=== PATIENT | male | born 1985 | race Caucasian/White ===

== ENCOUNTER 2019-11-20 13:13 | Emergency (ER) | payer OTHER ==
[~2019-11-20] VITALS: Ht 177.8 cm; Wt 84.0 kg
[2019-11-20] MEDS ORDERED: ONDANSETRON 2MG/ML, 2ML ONE (13:54)
[2019-11-20] MEDS ORDERED: HYDROmorphone 1 MG/ML, 1ML INJ ONE ×2 (13:54→15:56)
[2019-11-20] MEDS: HYDROmorphone 1 MG/ML, 1ML INJ IVPush PRN ×2 (13:57→14:38)
[2019-11-20] MEDS ORDERED: ONDANSETRON 2MG/ML, 2ML IVPush ONE (14:00)
[2019-11-20] MEDS ORDERED: SODIUM CHLORIDE FLUSH 10ML SYR IVF ONE (14:00)
[2019-11-20] MEDS ORDERED: FEXO60TA24 PO (14:02)
--- NOTE | 2019-11-20 14:08 | NUR ---
PT MEDICATED PER NOV. WILL CONTINUE TO MONITOR. PT ON CONTINUOUS SPO2 MONITOR AND CARDIAC MONITORS. CALL LIGHT IN LAP.
[2019-11-20 14:57] LABS: ALBUMIN 3.9 g/dL (3.4-5.0); CALCIUM 9.3 mg/dL (8.5-10.1); CREATININE 1.19 mg/dL (0.7-1.3)
[2019-11-20 15:02] LABS: ANION GAP 7 mmol/L (5-15); CHLORIDE 110 mmol/L (98-107)
[2019-11-20 15:07] LABS: BASOPHILS # (AUTO) 0.03 x10^3/uL (0-0.1); BASOPHILS % (AUTO) 0 % (0-1); EOSINOPHILS # (AUTO) 0.14 x10^3/uL (0-0.4); EOSINOPHILS % (AUTO) 2 % (1-7); LYMPHOCYTES # (AUTO) 1.43 x10^3/uL (1-3.4); LYMPHOCYTES % (AUTO) 19 % (22-44); MD NO; MEAN CORPUSCULAR HEMOGLOBIN 32.8 pg (27.5-34.5); MEAN CORPUSCULAR HGB CONC 34.3 g/dL (33.2-36.2); MEAN CORPUSCULAR VOLUME 95.8 fL (81-97); MEAN PLATELET VOLUME 8.7 fL (7.4-10.4); MONOCYTES # (AUTO) 0.39 x10^3/uL (0.2-0.8); MONOCYTES % (AUTO) 5 % (2-9); NEUTROPHILS # (AUTO) 5.41 x10^3/uL (1.8-6.8); NEUTROPHILS % (AUTO) 73 % (42-75); PLATELET COUNT 201 x10^3/uL (130-400); RED BLOOD COUNT 4.54 x10^6/uL (4.38-5.82); RED CELL DISTRIBUTION WIDTH 13.3 % (9.4-14.8)
[2019-11-20] MEDS: HYDROmorphone 2 MG/ML, 1ML IVPush PRN ×2 (15:58→17:30)
[2019-11-20] MEDS ORDERED: OMNIPAQUE 350 MG/ML, 75ML BOTTLE ONE (16:14)
[2019-11-20 18:15] VITALS: BP 126/82
--- NOTE | 2019-11-20 18:17 | NUR ---
ASKED BY PRIMARY RN TO DISCHARGE PATIENT. PATIENT WANTS TO GO HOME. PT GIVEN A INCENTIVE SPIROMETER. PT RETURNED DEMO. ALL QUESTIONS ANSWERED. PT READY FOR DC.
== END 2019-11-20 18:20 | disposition home or self-care (01) ==
LOC: ED 16:18
DX: S42.114A Nondisplaced fracture of body of scapula, right shoulder, initial encounter for closed fracture (principal); S22.41XA Multiple fractures of ribs, right side, initial encounter for closed fracture; R06.02 Shortness of breath; W18.39XA Other fall on same level, initial encounter; Y93.55 Activity, bike riding; Y92.89 Other specified places as the place of occurrence of the external cause; Y99.8 Other external cause status
CPT/HCPCS: 36415; 71260; 73000; 73030; 80048; 82040; 85025; 96374; 96375; 96376; 99285; J1170; J2405; Q9967